=== PATIENT | female | born 1990 | race Caucasian/White ===

== ENCOUNTER 2018-08-18 14:06 | Emergency (ER) | payer BC, OTHER ==
[2018-08-18 14:37] VITALS: BP 116/66; PULSE 87
--- NOTE | 2018-08-18 14:49 | ERPHSYRPT ---
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 10/25. not tender to palpation,. Dull pressure, Ache Physician History: 28 y/o obese white female presents with right lower back and right hip pain. 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 pt fell back onto lower back and right hip. denies head injury. pt has no urinary sx. Timing/Duration: today Method of Injury: fall Quality: sharp, aching Back Pain Location: lumbar spine Severity of Pain-Max: mild Severity of Pain-Current: mild Modifying Factors: Improves With: movement Associated Symptoms: lower back pain, muscle spasms, No fever, No chills, No urinary incontinence, No constipation, No nausea, No vomiting, No weakness, No sensory/motor loss, No tingling in legs/feet Previous symptoms: no prior history Allergies/Adverse Reactions: No Known Drug Allergies Allergy (Unverified 08/18/18 15:16) Hx Tetanus, Diphtheria Vaccination/Date Given: Yes Hx Influenza Vaccination/Date Given: No Hx Pneumococcal Vaccination/Date Given: No - Review of Systems Constitutional: No Symptoms Eyes: No Symptoms Ears, Nose, & Throat: No Symptoms Respiratory: No Symptoms Cardiac: No Symptoms Abdominal/Gastrointestinal: No Symptoms Genitourinary Symptoms: No Symptoms, No Dysuria, No Frequency, No Hematuria Musculoskeletal: Back Pain, Fall, Other (right hip) Skin: No Symptoms Neurological: No Symptoms Psychological: No Symptoms Endocrine: No Symptoms Hematologic/Lymphatic: No Symptoms Immunological/Allergic: No Symptoms All Other Systems: Reviewed and Negative - Past Medical History Pertinent Past Medical History: No Neurological History: No Pertinent History Cardiac History: No Pertinent History Respiratory History: No Pertinent History Endocrine Medical History: No Pertinent History Musculoskeletal History: No Pertinent History GI Medical History: No Pertinent History History: No Pertinent History Psycho-Social History: No Pertinent History Female Reproductive Disorders: No Pertinent History - Past Surgical History Past Surgical History: Yes Neuro Surgical History: No Pertinent History Cardiac: No Pertinent History Respiratory: No Pertinent History Gastrointestinal: No Pertinent History Genitourinary: No Pertinent History Musculoskeletal: No Pertinent History Female Surgical History: No Pertinent History Other Surgical History: T & A age 9 - Social History Smoking Status: Former smoker Drug Use: none Patient Lives Alone: No - Female History Hx Last Menstrual Period: 08/01/18 Hx Now: No - Nursing Vital Signs Nursing Vital Signs: Initial Vital Signs Temperature 97.9 F 08/18/18 14:15 Pulse Rate 87 08/18/18 14:15 Respiratory Rate 16 08/18/18 14:15 Blood Pressure 116/66 08/18/18 14:15 Pain Scale Pain Intensity [Right 2 Posterior Lateral Hip] Pain Intensity 2 - Physical Exam General Appearance: no apparent distress, alert, anxiety Eye Exam: PERRL/EOMI, eyes nml inspection Ears, Nose, Throat Exam: normal ENT inspection, moist mucous membranes Neck Exam: normal inspection, non-tender, supple, full range of motion Respiratory Exam: normal breath sounds, lungs clear, airway intact, No chest tenderness, No respiratory distress, No accessory muscle use, No rhonchi, No wheezing, No stridor Cardiovascular Exam: regular rate/rhythm, normal heart sounds, normal peripheral pulses Gastrointestinal Exam: soft, normal bowel sounds, No tenderness, No guarding, No rebound Pelvic Exam: not done Rectal Exam: not done Back Exam: normal inspection, normal range of motion, muscle spasm (lower back and right hip), No vertebral tenderness Extremity Exam: normal inspection, normal range of motion, pelvis stable Neurologic Exam: alert, oriented x 3, cooperative, 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 Skin Exam: normal color, warm, dry Lymphatic Exam: No adenopathy SpO2 Interpretation: normal Oxygen Delivery: Room Air - Course Nursing assessment & vital signs reviewed: Yes Ordered Tests: Active Orders 24 hr Category Date Time Status HIP UNI (2V) INCL PEL IF DONE Stat Exams 08/18/18 14:49 Taken LUMBAR LIMITED (2 OR 3 VIEWS) Stat Exams 08/18/18 14:49 Taken HCG,QUALITATIVE URINE Stat Lab 08/18/18 15:02 Completed UA W/RFX UR CULTURE Stat Lab 08/18/18 15:03 Completed Lab/Rad Data: Laboratory Results 08/18/18 08/18/18 Range/Units 15:03 15:02 Urine Color YELLOW (YELLOW) Urine Appearance CLOUDY (CLEAR) Urine pH 8.0 (5-6) Ur Specific [place] 1.029 (1.005-1.025) Urine Protein 100 (Negative) Urine Ketones NEGATIVE (NEGATIVE) Urine Blood NEGATIVE (0-5) [place]/ul Urine Nitrite NEGATIVE (NEGATIVE) Urine Bilirubin NEGATIVE (NEGATIVE) Urine Urobilinogen 2 (0-1) mg/dL Ur Leukocyte Esterase SMALL (NEGATIVE) Urine WBC (Auto) 16-25 (0-5) /HPF Urine RBC (Auto) 3-5 (0-2) /HPF U Epithel Cells (Auto) FEW (FEW) /HPF Urine Bacteria (Auto) MODERATE (NEGATIVE) /HPF Urine Mucus (Auto) SLIGHT (NEGATIVE) /HPF Urine Culture Reflexed YES (NO) Urine Glucose NEGATIVE (NEGATIVE) mg/dL Urine HCG, Qual NEGATIVE (Negative) - Progress Progress: pain not gone completely, re-examined Progress Note: 08/18/18 15:46 xray pelvis and lumbar spine-no acute fx, dislocation or subluxation Counseled pt/family regarding: diagnosis, need for follow-up, rad results - Departure Time of Disposition: 15:49 Departure Disposition: Home Clinical Impression: Musculoskeletal back pain, Muscle spasm Condition: Stable Critical Care Time: No Additional Instructions: continue tylenol and ibuprofen. follow up with primary doctor for further management Prescriptions: Cyclobenzaprine HCl [Flexeril] 10 mg PO TID PRN #12 tablet PRN Reason: Muscle Spasms
[2018-08-18 15:21] LABS: Appearance CLOUDY (CLEAR); Bilirubin NEGATIVE (NEGATIVE); Blood NEGATIVE Ery/ul (0-5); Glucose NEGATIVE (NEGATIVE); Ketones NEGATIVE (NEGATIVE); Leukocyte Esterase SMALL (NEGATIVE); Nitrite NEGATIVE (NEGATIVE); Protein,Urine Dip 100 (Negative); Specific Gravity 1.029 (1.005-1.025); Urobilinogen 2 mg/dL (0-1)
--- NOTE | 2018-08-18 16:11 | XRAY ---
Indication: Pain following fall. Comparison: None 2 views of the right hip demonstrates lateral soft tissue calcified injection granuloma. No other bony, articular, or soft tissue abnormalities.
--- NOTE | 2018-08-18 16:16 | XRAY ---
Indication: Pain following fall. Comparison: None 3 views of the lumbar spine demonstrates 5 lumbar vertebral segments in normal alignment with minimal L5-S1 disc space narrowing, minimal thoracolumbar junction degenerative endplate spurring, and small L2/L3 Schmorl nodes. No acute fracture, subluxation, or suspicious bony lesions. Soft tissues unremarkable. Impression: Nonacute lumbar spine with chronic features.
== END 2018-08-18 16:06 | disposition home or self-care (01) ==
LOC: ED 14:06
DX: M54.5 Low back pain (principal); M25.551 Pain in right hip; M62.830 Muscle spasm of back; W19.XXXA Unspecified fall, initial encounter; Y93.89 Activity, other specified; Y92.149 Unspecified place in prison as the place of occurrence of the external cause; Y99.0 Civilian activity done for income or pay
CPT/HCPCS: 72100; 73502; 81001; 84703; 87086; 99284